=== PATIENT | female | born 1945 | race Caucasian/White ===

== ENCOUNTER 2017-02-11 15:16 | Emergency (ER) | payer OTHER ==
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
--- NOTE | 2017-02-11 16:04 | ED ORDER SUMMARY ---
..... Patient: RACHEL ROJAS OrderSheet [facility] VisitID: [id number] [address] [place] [address] 71y, F Registration Date/Time: 02/11/2017 ORDER SHEET Weight: 68.0 kg (estimated) Allergies: Augmentin GENERAL ORDERS: CT Cervical Spine wo Cont Urgent (15:24 02/11/2017 Ignacia MCFARLANE) (15:31 Henrique R.NMica) MEDICATION ORDERS: IV FLUIDS: ORDER SHEET NOTES: [Electronically signed by Orlando Byrd R.N. (16:02/11/2017)] [Electronically signed by Gabrielle Newell MD (14:24 02/21/2017)] [Electronically locked/signed by Orlando Byrd R.N. (16:02/11/2017)]
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
--- NOTE | 2017-02-11 16:04 | ED ORDER SUMMARY ---
..... Patient: RACHEL ROJAS OrderSheet [facility] VisitID: [id number] [address] [place] [address] 71y, F Registration Date/Time: 02/11/2017 ORDER SHEET Weight: 68.0 kg (estimated) Allergies: Augmentin GENERAL ORDERS: CT Cervical Spine wo Cont Urgent (15:24 02/11/2017 Ignacia MCFARLANE) (15:31 Henrique R.NMica) MEDICATION ORDERS: IV FLUIDS: ORDER SHEET NOTES: [Electronically signed by Orlando Byrd R.N. (16:02/11/2017)] [Electronically signed by Gabrielle Newell MD (14:24 02/21/2017)] [Electronically locked/signed by Orlando Byrd R.N. (16:02/11/2017)]
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
--- NOTE | 2017-02-21 14:25 | ED MAR SUMMARY ---
..... Medication Administration Record [facility] [address] [place], [place] [id number] Patient: RACHEL ROJAS Visit ID: [id number] 71y, F Weight: 68.0 kg Height/Length: 64 in BMI: 25.8 ALLERGIES: Augmentin
--- NOTE | 2017-02-21 14:25 | ED MAR SUMMARY ---
..... Medication Administration Record [facility] [address] [place], [place] [id number] Patient: RACHEL ROJAS Visit ID: [id number] 71y, F Weight: 68.0 kg Height/Length: 64 in BMI: 25.8 ALLERGIES: Augmentin
--- NOTE | 2017-02-21 14:25 | ED MED RECONCILIATION SUMMARY ---
Patient: RACHEL ROJAS Medication Reconciliation Report [facility] VisitID: [id number] [address] [place] [address] 71y, F Registration Date/Time: 02/11/2017 Weight: 68.0 kg Height/Length: 64 in. BMI: 25.8 ALLERGIES: Augmentin The patient's Home Medications are listed below: CONTINUE TAKING THE FOLLOWING MEDICATIONS: BusPIRone HCl Oral Levothyroxine Sodium Oral Simvastatin Oral The source(s) of the original Home Medication information: Not obtained. The following Medications were given to the patient in the Emergency Department: None. The following Medications were prescribed to the patient: None.
--- NOTE | 2017-02-21 14:25 | ED MED RECONCILIATION SUMMARY ---
Patient: RACHEL ROJAS Medication Reconciliation Report [facility] VisitID: [id number] [address] [place] [address] 71y, F Registration Date/Time: 02/11/2017 Weight: 68.0 kg Height/Length: 64 in. BMI: 25.8 ALLERGIES: Augmentin The patient's Home Medications are listed below: CONTINUE TAKING THE FOLLOWING MEDICATIONS: BusPIRone HCl Oral Levothyroxine Sodium Oral Simvastatin Oral The source(s) of the original Home Medication information: Not obtained. The following Medications were given to the patient in the Emergency Department: None. The following Medications were prescribed to the patient: None.
== END 2017-02-11 16:16 | disposition home or self-care (01) ==
LOC: ED SRH 15:16
DX: S16.1XXA Strain of muscle, fascia and tendon at neck level, initial encounter (principal); V47.5XXA Car driver injured in collision with fixed or stationary object in traffic accident, initial encounter; Y93.89 Activity, other specified; Y99.8 Other external cause status; Y92.410 Unspecified street and highway as the place of occurrence of the external cause; E03.9 Hypothyroidism, unspecified; Z90.710 Acquired absence of both cervix and uterus; Z88.1 Allergy status to other antibiotic agents; Z79.899 Other long term (current) drug therapy